=== PATIENT | female | born 1960 | race Caucasian/White ===

== ENCOUNTER 2021-08-24 11:22 | Outpatient (CLI) | payer OTHER, SELFPAY ==
--- NOTE | ~2021-08-24 | XR_ITS ---
XR chest 2V DATE: 08/24/2021 12:00 INDICATION: Chest pain after upper endoscopy TECHNIQUE: PA and lateral views COMPARISON: None FINDINGS: Normal heart size. No hilar or mediastinal enlargement. No pulmonary infiltrate or consolid ation, pleural effusion or pulmonary vascular congestion or pneumothorax. There is degenerative spurr ing of the thoracic spine. IMPRESSION: No active cardiopulmonary disease Reviewed, dictated and finalized at location B. MOBILE RENTAL AGENT
== END 2021-08-24 11:23 | disposition home or self-care (01) ==
LOC: ANHIMG 11:30
PROVIDERS: PCP Internal Medicine
DX: R07.9 Chest pain, unspecified (principal)
CPT/HCPCS: 71046

== ENCOUNTER 2021-10-20 20:32 | Emergency (ER) | payer OTHER, SELFPAY ==
--- NOTE | ~2021-10-20 | XR_ITS ---
EXAMINATION: XR hip RT 2V w AP pelvis DATE: 10/20/2021 20:57 INDICATION: Posterior right-sided hip pain post fall TECHNIQUE: Anteroposterior view of the pelvis and anteroposteriorright facet and frog leg lateral vie ws of the right hip were obtained. COMPARISON: None. FINDINGS: Alignment is normal. No fracture. Bilateral hip joint spaces are normal. Phlebolith in the left hemip kenroy. IMPRESSION: 1. No acute osseous abnormality. Reviewed, dictated and finalized at location A. FING COORDINATOR
[2021-10-20 20:33] VITALS: BP 137/77; PULSE 104; RESP 16; TEMP 36.6; O2SAT 99
[2021-10-20] MEDS: IBUPROFEN 600 MG TABLET PO (22:28)
[2021-10-20 22:30] VITALS: BP 137/68; PULSE 70; RESP 16; O2SAT 99
--- NOTE | 2021-10-20 23:45 | ED.FALL ---
HPI - Fall General Chief Complaint: Fall Stated Complaint: GLF MISSED A STEP RT LEG PAIN WITH MOVEMENT ONLY Time Seen by Provider: 10/20/21 20:32 Source: RN notes reviewed History of Present Illness HPI Narrative: Patient presents emergency department from home via EMS for fall. Patient states that she was walking out of her door when she slipped and fell landing back on her buttocks she denies striking her head or any loss of consciousness she notes pain in her right posterior hip that radiates down her leg and is worse with movement she denies any pain in the upper extremities or left lower extremity she denies any chest pain shortness of breath or any other symptoms Related Data Home Medications Medication Instructions Recorded Confirmed esomeprazole magnesium [Nexium] 20 mg PO DAILY 10/20/21 levothyroxine 10/20/21 spironolactone 75 mg PO DAILY 10/20/21 valsartan-hydrochlorothiazide 1 tablet PO DAILY 10/20/21 Allergies Allergy/AdvReac Type Severity Reaction Status Date / Time peanut Allergy Severe Anaphylactic Verified 06/17/12 20:58 Shock tree nut Allergy Severe Anaphylactic Verified 06/17/12 20:58 Shock cefdinir Allergy Swelling Verified 10/20/21 20:41 of Lip/Tongue/Throat Review of Systems Review of Systems: Gen.: Denies fevers or chills ENT: Denies congestion Respiratory: Denies shortness of breath or cough CV: Denies chest pain or palpitations GI: Denies abdominal pain nausea, emesis Musculoskeletal: See HPI Neuro: Denies numbness, tingling, weakness or focal weakness Skin: Denies rash Except as documented, all other systems reviewed and negative [facility] Past Medical History Medical History (Updated 10/20/21 @ 23:49 by Tuan Lujan DO) Hypertension Social History Social History (Updated 10/20/21 @ 23:46 by Tuan Lujan DO) Smoking status: Never smoker Exam Narrative: APPEARANCE: No acute distress, nontoxic, resting in bed EYES: EOMI, PERRL HEENT: Normocephalic, atraumatic, TMs clear bilaterally nares patent RESPIRATORY: No respiratory distress Clear to auscultation bilaterally with no rhonchi wheezing or rales. CARDIOVASCULAR: Regular rate and rhythm without murmurs rubs or gallops. ABDOMINAL: Soft, nontender, nondistended, no rebound or guarding Back: No midline thoracic or lumbar tenderness palpation MUSCULOSKELETAl: Moves all extremities. No clubbing, cyanosis or edema. No tenderness of bilateral upper extremities and left lower extremity tender to palpation of the right posterior hip with tenderness down to the right mid humerus pain with activation of the quadriceps muscle no tenderness of the right knee or ankle dorsalis pedis pulse 2+ neurovascular intact NEURO: Awake and alert x 4 Following commands, speech normal, no focal deficits SKIN:: Warm, dry. No rashes lesions or abrasions PSYCHIATRIC: Normal affect/mood, Course Course Emergency Course: Patient is able to get up and ambulate notes pain with activation of quadriceps muscle so this back quad strain Discussed with patient results of workup and diagnosis. Discussed need for follow-up with primary care, proper use of medication, and reasons to return to the emergency department. Patient understands and agrees to current treatment plan Vital Signs Vital signs: Vital Signs Temperature 97.9 F 10/20/21 20:33 Pulse Rate 104 H 10/20/21 20:33 Respiratory Rate 16 10/20/21 20:33 Blood Pressure 137/77 10/20/21 20:33 Pulse Oximetry 99 10/20/21 20:33 Temperature 97.9 F 10/20/21 20:33 Pulse Rate 70 10/20/21 22:30 Respiratory Rate 16 10/20/21 22:30 Blood Pressure 137/68 10/20/21 22:30 Pulse Oximetry 99 10/20/21 22:30 MDM - Fall MDM Narrative Medical decision making narrative: Patient?s injury is consistent with muscular skeletal etiology. No signs of neurologic or vascular compromise to exam. Compartments are soft without signs of compartment syndrome. Pain is consistent w
[2021-10-20 23:55] VITALS: BP 135/70; PULSE 72; RESP 18; O2SAT 99
== END 2021-10-21 | disposition home or self-care (01) ==
PROVIDERS: Emergency Provider Emergency Medicine; PCP Hospitalist
DX: S76.811A Strain of other specified muscles, fascia and tendons at thigh level, right thigh, initial encounter (principal); I10 Essential (primary) hypertension; W01.0XXA Fall on same level from slipping, tripping and stumbling without subsequent striking against object, initial encounter
CPT/HCPCS: 73502; 99283; A9270